=== PATIENT | male | born 1955 ===

== ENCOUNTER 2024-02-29 11:45 | Outpatient (CLI) | payer MEDICARE, OTHER | END 2024-02-29 11:46 | disposition home or self-care (01) | LOC: PET 11:45 | PROVIDERS: ATTEND Urology | DX: C61 Malignant neoplasm of prostate (principal); R59.0 Localized enlarged lymph nodes; N20.0 Calculus of kidney; G93.89 Other specified disorders of brain; Z98.890 Other specified postprocedural states | CPT/HCPCS: 78815; A9552 ==